=== PATIENT | female | born 1950 ===

== ENCOUNTER 2017-08-02 10:19 | Day surgery (SDC) | payer MEDICARE ==
[2017-07-24 10:55] VITALS: BMI 24.1
[2017-08-02] MEDS ORDERED: Propofol 10 mg/ml Inj (20 ML) ONE (13:03)
[2017-08-02 13:39] VITALS: RESP 16
[2017-08-02] MEDS ORDERED: Sodium Chloride 0.9% 1,000 ML IV SCH (13:45)
[2017-08-02 15:30] VITALS: BP 117/73; PULSE 55; TEMP 98; O2SAT 100
== END 2017-08-02 14:27 | disposition home or self-care (01) ==
LOC: ENDO 10:19
PROVIDERS: ATTEND Internal Medicine Gastroenterology
DX: Z12.11 Encounter for screening for malignant neoplasm of colon (principal); K57.30 Diverticulosis of large intestine without perforation or abscess without bleeding; K64.8 Other hemorrhoids; I10 Essential (primary) hypertension; M81.0 Age-related osteoporosis without current pathological fracture; E78.00 Pure hypercholesterolemia, unspecified; E11.9 Type 2 diabetes mellitus without complications; Z79.84 Long term (current) use of oral hypoglycemic drugs
CPT/HCPCS: 45378; 82948; J2001; J2704; J7040 ×2